=== PATIENT | male | born 1970 | race Caucasian/White ===

== ENCOUNTER 2023-04-18 09:35 | Emergency (ER) | payer BC, SELFPAY ==
--- NOTE | ~2023-04-18 | XR_ITS ---
EXAMINATION: XR HIP, RIGHT CLINICAL INFORMATION: Fall. Concern for fracture. Prior hardware. COMPARISON: Report from right hip radiographs dated 09/21/2007. TECHNIQUE: AP view of the pelvis as well as AP and frog-leg lateral views of the right hip. 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 There is a mildly displaced fracture through the central aspect of the screw within the right sacral ala. The fracture gap measures up to 0.3 cm. This was reportedly present with the fracture on the radiographs dated 09/21/2007. No perihardware lucency. Partially visualized proximal right femoral intramedullary lyla and stabilization screw without hardware fracture or perihardware lucency. No acute osseous fracture. Healed right superior and inferior pubic rami fractures. No concerning lytic or blastic osseous lesion. No evidence of avascular necrosis. Mild bilateral hip joint space narrowing with tiny marginal osteophytes. Phleboliths within the pelvis. XR/XR hip RT w PEL1V IMPRESSION: 1. No acute fracture or dislocation. 2. Mild bilateral hip osteoarthritis. 3. Healed right superior and inferior pubic rami fractures. 4. Orthopedic screw across the right sacroiliac joint with a mildly displaced fracture through the central aspect of the screw within the right sacral ala. This was reportedly present with the fracture on the radiographs dated 09/21/2007. No perihardware lucency to suggest hardware complication.
[2023-04-18 10:08] VITALS: BP 158/80; PULSE 82; RESP 20; TEMP 36.2; O2SAT 98; BMI 35.3
--- NOTE | 2023-04-18 10:22 | ED.GENADULT ---
HPI - General Adult General Chief complaint: General Medical Stated complaint: Fall/Hip pain Time Seen by Provider: 04/18/23 10:22 Source: patient and family (patient's ) Mode of arrival: ambulatory Limitations: no limitations History of Present Illness HPI narrative: Patient is a 52 year old assigned male at with a history of previous pelvic fracture requiring hardware to fix in 2005 presenting to the emergency department today with right hip pain. Patient states that a few days ago he was lifting boxes and fell back onto his buttock, hard. Patient states that ever since he has had pain in his right side. Patient states that it comes and goes. Patient denies any dizziness, lightheadedness, abdominal pain, nausea, vomiting, fever, chills, blurry vision, double vision, loss of vision, chest pain, difficulty breathing, shortness of breath, back pain, night sweats, pain with urination, increased urinary frequency, increased urinary urgency, blood in his urine or stool, syncope or a near syncopal episode, bowel incontinence, bladder incontinence, bowel retention, bladder retention, or any other complaints at this time. Onset (ago): day(s) Location: buttocks and right Severity: mild Severity scale (1-10): 5 Quality: aching and dull Relieving factors: none Exacerbating factors: movement Associated symptoms: denies other symptoms Treatments prior to arrival: NSAID Related Data Previous Rx's Medication Instructions Recorded cyclobenzaprine 5 mg tablet 5 mg PO TID PRN muscle spasm 7 04/18/23 days #21 tabs naproxen 500 mg tablet 500 mg PO BID 7 days #14 tabs 04/18/23 prednisone 20 mg tablet 20 mg PO DAILY 7 days #7 tabs 04/18/23 Allergies Allergy/AdvReac Type Severity Reaction Status Date / Time Penicillins [PENICILLINS] Allergy Unknown UNKNOWN Unverified 04/03/20 17:36 Review of Systems Constitutional: Constitutional: Reports no additional constitutional complaints, Denies chills, Denies fever(s) and Denies night sweats Eyes: Eyes: Reports no additional eye complaints, Denies blurry vision, Denies change in vision, Denies diplopia, Denies eye discharge, Denies loss of vision and Denies eye pain ENT: Denies dizziness Cardiovascular: Cardiovascular: Reports no additional cardiovascular complaints, Denies chest pain, Denies lightheadedness, Denies Loss of Consciousness and Denies dyspnea Respiratory: Respiratory: Reports no additional respiratory complaints and Denies dyspnea Gastrointestinal: Gastrointestinal: Reports no additional gastrointestinal complaints, Denies abdominal pain, Denies melena, Denies hematochezia, Denies change in bowel habits and Denies change in stool character Genitourinary: Genitourinary: Reports no additional male genitourinary complaints, Denies hematuria, Denies oliguria, Denies difficulty urinating, Denies dysuria, Denies urinary frequency, Denies urinary hesitancy, Denies urinary incontinence and Denies urinary urgency Musculoskeletal: Musculoskeletal: Reports no additional musculoskeletal complaints, Denies numbness and Denies tingling Comments: right hip and buttock pain Neurologic: Denies dizziness, Denies loss of vision, Denies numbness and Denies tingling Psychiatric: Psychiatric: Reports no additional psychiatric complaints Endocrine: Endocrine: Reports no additional endocrine complaints Hematologic/Lymphatic: Hematologic/Lymphatic: Reports no additional hematologic/lymphatic complaints Allergic/Immunologic: Allergic/Immunologic: Reports no additional allergic/immunologic complaints PMFSH Past Medical History Attestation statement: The following information was validated with the patient. Source: old records reviewed, obtained from family (patient's provided additional history and confirmed the history provided by the patient) and nursing notes reviewed Social History Social History Advance Directives: No Advance Directives Information Provided: Yes Physical Exam ED Vital Signs: Vital Signs - 24 hr 04/18/23 10:08 04/18/23 12:26 Temperature 97.2 F Pulse Rate 82 Respiratory Rate 20 16 Blood Pressure 158/80 H Pulse Oximetry 98 Oxygen Delivery Method Room Air BMI result Body Mass Index 35.3 Const General: cooperative, no acute distress, alert and awake Nutritional Appearance: well nourished Orientation/consciousness: patient oriented x3 Limitations: no limitations HENMT Head: Yes normal to inspection and Yes atraumatic Ears: hearing grossly normal bilaterally and external ears normal General nose exam: Normal external nose present, no nasal discharge noted and no epistaxis Face and sinus: Yes normal facial exam, No abrasion and No laceration Mouth: Normal oral and palatal mucosa present, no drooling and no muffled voice Eyes General: appearance normal, both eyes and all related structures Periorbital: periorbital findings normal Eyelids: Yes eyelids normal Conjunctivae: conjunctivae normal Pupils: Equal, round and reactive pupils present EOM: EOMs intact bilaterally Neck Neck: Yes normal visual inspection, Yes full ROM and Yes no lymphadenopathy Chest Chest palpation & inspection: normal inspection of the chest Resp Effort & Inspection: normal respiratory effort and able to speak in complete sentences GI Inspection: Yes normal to inspection General: Yes no CVA tenderness Back/Spine/Pelvis Back: no CVA tenderness Cervical Spine: normal cervical lordosis and cervical ROM normal Thoracic/Lumbar Spine: thoracic and lumbar spine normal to inspection and thoraco-lumbar ROM normal Neuro General: patient oriented x3 and moves all extremities Cranial nerves: Yes Equal, round and reactive pupils present Cognition (Neuro): normal cognition Motor exam (neuro): 5/5 motor strength present throughout Sensory Exam: Normal double simultaneous stimulation for sensation Coordination: [id number] test normal Extrem General: Yes normal to inspection, Yes full ROM and Yes capillary refill normal Psych Appearance: grossly normal Mental Status: mental status grossly normal Affect: normal affect Attitude: cooperative Thought process: Normal thought process present Thought content: Normal thought content present Insight: Good insight present (Psych) Medications Administered Discontinued Medications Generic Name Dose Route Start Last Admin Trade Name Artemq PRN Reason Stop Dose Admin Morphine Sulfate 4 mg 04/18/23 11:34 04/18/23 12:26 Morphine Sulfate 4 Mg/Ml Cartridge IM 04/18/23 11:35 4 mg ONCE ONE Administration Protocol Ondansetron HCl 4 mg 04/18/23 11:34 04/18/23 12:25 Ondansetron Odt 4 Mg Tab.Rapdis TRANSLINGU 04/18/23 11:35 4 mg ONCE ONE Administration Medical Decision Making Medical Decision Making [facility] Narrative: Patient is a 52 year old assigned male at with a history of a previous pelvic injury presenting to the emergency department today with right hip pain. Patient's physical exam was unremarkable. Patient's right hip and pelvis x-ray showed no acute fracture but did show a fractured surgical screw. This was present in 2007 and is not new. I explained my physical exam findings as well as all test results to the patient and the patient's . I answered all questions asked by the patient and the patient's . Patient received IM Morphine and ODT Zofran while in the department. I spoke with the orthopedic team who informed me nothing could be done for the screw and that the patient's symptoms just need to be managed. I stressed the importance of the patient taking his medication as prescribed. I stressed the importance of the patient following up with his primary care provider and a pain specialist. I stressed the importance of the patient returning to the emergency department immediately if his symptoms were to worsen or if he were to develop any dizziness, shortness of breath, difficulty breathing, chest pain, blurry vision, loss of vision, nausea, vomiting, abdominal pain, fever, chills, back pain, or any other complaints. Patient and the patient's verbalized agreement and understanding with this treatment plan and discharge. Differential Diagnosis Differential Diagnoses: The differential diagnosis associated with the presentation includes Broken surgical hardware Right hip pain Pelvis pain Consult Healthcare Provider Management of the patient was discussed with: [employer] (spoke with orthopedics as noted in the rationale portion of this note.) Independent Interpretation I performed an independent interpretation of an: Plain X-Ray Interpretation: My interpretation is in agreement with the radiologist's impression of this imaging study. EXAMINATION: XR HIP, RIGHT CLINICAL INFORMATION: Fall. Concern for fracture. Prior hardware. COMPARISON: Report from right hip radiographs dated 09/21/2007. TECHNIQUE: AP view of the pelvis as well as AP and frog-leg lateral views of the right hip. 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 There is a mildly displaced fracture through the central aspect of the screw within the right sacral ala. The fracture gap measures up to 0.3 cm. This was reportedly present with the fracture on the radiographs dated 09/21/2007. No perihardware lucency. Partially visualized proximal right femoral intramedullary lyla and stabilization screw without hardware fracture or perihardware lucency. No acute osseous fracture. Healed right superior and inferior pubic rami fractures. No concerning lytic or blastic osseous lesion. No evidence of avascular necrosis. Mild bilateral hip joint space narrowing with tiny marginal osteophytes. Phleboliths within the pelvis. XR/XR hip RT w PEL1V IMPRESSION: 1. No acute fracture or dislocation. 2. Mild bilateral hip osteoarthritis. 3. Healed right superior and inferior pubic rami fractures. 4. Orthopedic screw across the right sacroiliac joint with a mildly displaced fracture through the central aspect of the screw within the right sacral ala. This was reportedly present with the fracture on the radiographs dated 09/21/2007. No perihardware lucency to suggest hardware complication. Dictated By: Tripp Baig MD Signed By: Electronically signed by Tripp Baig MD 04/18/23 1219 Radiology Impression Discussion of test interpretation with radiology: I have reviewed the radiologist's reading. Independent Historian Clinical information obtained from an independent historian. History obtained from or confirmed by: Spouse (patient's provided additional history and confirmed the history provided by the patient.) Prescription Management I considered prescription management with: Pain Medication (patient prescribed pain medication.) Critical Care Time Critical Care Time Critical Care Time: Yes Total Critical Care Time: 35 Attestation: I spent 35 minutes of Critical Care Time with this patient. This does not include time spent on separately reported billable procedures. Discharge Plan Discharge Clinical Impression: Acute hip pain Patient Disposition: Home, Self-Care Instructions: Hip Pain (ED) Additional Instructions: Follow up with your primary care provider, an orthopedic provider, and a pain specialist. Return to the emergency department immediately if your symptoms worsen or if you develop any dizziness, shortness of breath, difficulty breathing, chest pain, blurry vision, loss of vision, nausea, vomiting, abdominal pain, fever, chills, back pain, or any other complaints. Prescriptions: New cyclobenzaprine 5 mg tablet 5 mg PO TID PRN (Reason: muscle spasm) 7 Days Qty: 21 0RF naproxen 500 mg tablet 500 mg PO BID 7 Days Qty: 14 0RF prednisone 20 mg tablet 20 mg PO DAILY 7 Days Qty: 7 0RF Referrals: [facility] [place] Orthopedic Surgeons [Provider Group] (Call to establish and follow up with an orthopedic provider.) [facility] [place] Pain Management [Provider Group] (Call to establish and follow up with a pain specialist.) Aurora Delgadillo CNP [Primary Care Provider] - Stand Alone Forms: Work/School Release Interventions: ED Discharge Assessment Last Done: 04/18/23 12:55 Discharge Date/Time: 04/18/23 12:55 Print Language: Serbian
[2023-04-18] MEDS: Ondansetron ODT 4 MG TAB.RAPDIS TRANSLINGU (12:25)
[2023-04-18 12:26] VITALS: RESP 16
[2023-04-18] MEDS: Morphine Sulfate 4 MG/ML CARTRIDGE IM (12:26)
== END 2023-04-18 12:55 | disposition home or self-care (01) ==
PROVIDERS: Emergency Provider Emergency Medicine; PCP Nurse Practitioner Family
DX: M25.551 Pain in right hip (principal); M54.50 Low back pain, unspecified; Z79.899 Other long term (current) drug therapy
CPT/HCPCS: 73502; 96372; 99283; 99284; J2270